=== PATIENT | female | born 2000 | race Caucasian/White ===

== ENCOUNTER 2020-06-05 19:20 | Emergency (ER) | payer BC, SELFPAY ==
[2020-06-05 19:22] VITALS: BP 184/68; PULSE 80; RESP 18; TEMP 37.6; O2SAT 95; BMI 21.7
--- NOTE | 2020-06-05 21:03 | RAD_ITS ---
STUDY: X-RAY CHEST REASON FOR EXAM: Female, 19 years old. Shortness of breath, sore throat. TECHNIQUE: PA and lateral COMPARISON: None. FINDINGS: The lungs are clear and expanded. There is no demonstrated pleural abnormality. Normal size heart. Normal mediastinum and cherry. Normal visualized pulmonary arteries. Normal visualized aortic arch and descending thoracic aorta. Normal visualized thoracic spine. Normal visualized ribs, clavicles, and shoulders. There is no demonstrated abnormality of the visualized soft tissue structures of the upper abdomen. RAD/Chest PA and Lateral IMPRESSION: Normal x-ray examination of the chest. Electronically Signed: Long Nam MD at 21:58 EDT , Service support ,
--- NOTE | 2020-06-05 21:48 | ED.VIS.GEN ---
History of Present Illness Chief Complaint: Shortness of Breath Informant: Patient Narrative: 19-year-old female [employer] student presents the emergency department stating that since Monday she has had a sore throat. There has been an outbreak of COVID-19 on campus. Sore throat progressively worsened yesterday she developed slight cough some congestion tonight some dyspnea. She also notes some right eye pain particularly when she blinks and believes it is from her upper lid. She does express any change in vision. No double vision or blurry vision. She denies any tearing or exudates. No known foreign bodies. She has not had a fever. She states that she feels fatigued. Past Medical History Primary Care Physician: Ahsan Velez,Out of [Primary Care Provider] - Prior records reviewed: Yes Past Medical History: None Surgical History: noncontributory Lives: - - [employer] [facility] Student Smoking Status: Never smoker Drugs: None Review of Systems General: Reports: Chills, Malaise. Denies: Fever, Sweats Eyes: Reports: - - Right Eye Pain. Denies: Visual changes - bilaterally, Diplopia ENT: Reports: Rhinorrhea, Sore throat Cardiovascular: Denies: Chest pain, Palpitations Respiratory: Reports: Dyspnea, Cough. Denies: Dyspnea on exertion Gastrointestinal: Denies: Abdominal pain, Nausea, Vomiting, Diarrhea, Melena, Hematochezia Genitourinary: Denies: Dysuria, Hematuria, Frequency Musculoskeletal: Reports: Myalgias. Denies: Back pain, Extremity Pain Skin: Denies: Rash, Wounds Neurological: Reports: Headache. Denies: Weakness, Numbness Physical Exam Vital Signs/Narrative: Vital Signs Temp Pulse Resp BP Pulse Ox 06/05/20 19:22 99.7 F H 80 18 184/68 H 95 Inital Vital Signs reviewed: Yes General: Well nourished, Well developed, No Acute Distress Head: Normocephalic, Atraumatic Eyes: Perrl, EOMI, - - There is no injection of the eye. There is no obvious foreign bodies, stye/hordeolum. No obvious corneal abrasion. ENT: Moist mucous membranes, Nasal congestion Neck: Supple, Nontender Cardiovascular: Regular rate, Regular rhythm, No murmurs Respiratory: No distress, CTA bilaterally, Chest nontender Abdomen: Soft, Nontender, Nondistended, Normal bowel sounds Back: Nontender, Normal Inspection Extremities: Nontender, No edema Skin: Normal color, No rash Neurological: Alert, Oriented x3, Cranial nerves II-XII grossly intact, Normal Strength, Normal Sensation Psychological: Normal affect, Normal Mood Diagnostic/Tx/Re-eval - Medical Decision Making Chest x-ray does not show any obvious infiltrates. Covid swab was sent. And to give her some erythromycin ophthalmic ointment for the right eye to see if it can help soothe the eye. I do not see an obvious cause for the patient's pain. She appears clinically well. She will be discharged back to the [facility] to isolate. ED Disposition - Plan for ED Patient: Disposition: Home or Assisted Living Diagnosis: Viral syndrome, Acute right eye pain Instructions: ED Viral Syndrome Prescriptions: Erythromycin Ophthalmic 1 applic RIGHT EYE TID 4 Days #1 tube Prescription Printed Referrals: [facility] [GROUP OF PHYSICIANS] - As Needed Additional Instructions: Covid test will take a couple days to come back. I would encourage you to stay hydrated and to isolate.
[2020-06-05] MEDS: Erythromycin Base 1 OPTH.TUBE 1 APPLIC RIGHT EYE (22:16)
[2020-06-05 22:17] VITALS: RESP 16
== END 2020-06-05 22:18 | disposition home or self-care (01) ==
PROVIDERS: Emergency Provider Emergency Medicine
DX: B34.9 Viral infection, unspecified (principal); H57.11 Ocular pain, right eye
CPT/HCPCS: 71046; 87635; 99281; U0003

== ENCOUNTER 2020-11-13 11:33 | Outpatient (RCR) | payer BC, SELFPAY | END 2021-01-19 23:59 | LOC: IMMUN 11:33 | PROVIDERS: Visit Provider Family Medicine | DX: Z23 Encounter for immunization (principal) | CPT/HCPCS: 0001A; 0002A; 91300 ==